=== PATIENT | male | born 1965 | race Caucasian/White ===

== ENCOUNTER 2017-06-03 11:41 | Inpatient (IN) | payer SELFPAY ==
[~2017-06-03] VITALS: Ht 188 cm; Wt 108.8 kg
[2017-06-03] MEDS ORDERED: MORPHINE SULFATE INJECTION 1 ML ONE (11:44)
[2017-06-03] MEDS ORDERED: HEPARIN SODIUM (PORCINE) 5000 UNITS/ML 1ML VIAL ONE (11:47)
[2017-06-03] MEDS ORDERED: LIDOCAINE 2%HCL (LOCAL ANESTH.) INJ 20ML MDV ONE (11:54)
[2017-06-03] MEDS ORDERED: IOHEXOL 350 MG/ML 100ML IJ ONE (11:54)
[2017-06-03] MEDS ORDERED: MORPHINE SULF INJ 2 MG/ML SYRINGE 1ML IV ONE ×2 (12:00→12:15)
[2017-06-03 12:08] LABS: Basophils # (auto) 0.1 uL; Basophils % (auto) 0.8 % (0.0-2.0); Eosinophils # (auto) 0.2 uL; Eosinophils % (auto) 2.5 % (0.0-7.0); Hematocrit 49.5 % (41.0-53.0); Hemoglobin 16.9 g/dL (13.5-17.5); Lymphocytes # (auto) 3.1 uL; Lymphocytes % (auto) 35.9 % (10.0-50.0); Mean Corpuscular Hemoglobin 30.8 pg (28.0-32.0); Mean Corpuscular Hgb Conc. 34.2 g/dL (32.0-36.0); Mean Corpuscular Volume 90.2 fL (80.0-100.0); Monocytes # (auto) 0.9 uL; Monocytes % (auto) 10.4 % (0.0-12.0); Neutrophils # (auto) 4.4 uL; Neutrophils % (auto) 50.4 % (37.0-80.0); Nucleated Red Blood Cells % 0.2 %; Platelet Count (auto) 218 10^3/uL (140-450); Red Cell Distribution Width 12.8 % (11.8-14.3); White Blood Cell 8.7 10^3/uL (4.4-10.8)
[2017-06-03] MEDS ORDERED: NITROGLYCERIN 0.4 MG SL TAB SL ONE (12:15)
[2017-06-03] MEDS ORDERED: HEPARIN SODIUM (PORCINE) 5000 UNITS/ML 1ML VIAL IV ONE (12:15)
[2017-06-03 12:32] LABS: Albumin 3.7 g/dL (3.4-5.0); BUN/Creatinine Ratio 24.5; Bilirubin, Total 0.5 mg/dL (0.2-1.0); Calcium 9.1 mg/dL (8.5-10.1); Magnesium 2.3 mg/dL (1.6-2.6); Potassium 4.4 mmol/L (3.5-5.1); Total Protein 7.7 g/dL (6.4-8.2)
[2017-06-03] MEDS ORDERED: HYDROcodone-ACET 5/325MG TAB PO PRN ×3 (13:30→14:15)
[2017-06-03] MEDS ORDERED: ACETAMINOPHEN 500 MG TAB PO PRN ×3 (13:30→14:15)
[2017-06-03] MEDS ORDERED: TICAGRELOR 90 MG TAB PO ONE ×2 (13:30→14:30)
[2017-06-03] MEDS ORDERED: MORPHINE SULF INJ 2 MG/ML SYRINGE 1ML IV PRN ×3 (13:30→14:15)
[2017-06-03] MEDS ORDERED: NITROGLYCERIN 0.4 MG SL TAB SL PRN ×3 (13:30→14:15)
[2017-06-03] MEDS ORDERED: SODIUM CHLORIDE 0.9% 1,000 ML IV SCH (13:30)
[2017-06-03] MEDS: SODIUM CHLORIDE 0.9% 1,000 ML IV SCH ×2 (14:30→21:53)
[2017-06-03] MEDS ORDERED: ASPirin-EC 81 mg tab PO ONE (14:30)
[2017-06-03 15:45] LABS: INR 1.08 (0.9-1.15); Partial Thromboplastin Time 34.1 sec (22.64-33.71); Prothrombin Time 11.8 sec (9.37-12.3)
[2017-06-03] MEDS ORDERED: ASPI-231 PO (16:30)
[2017-06-03 18:00] VITALS: BP 130/70
[2017-06-03 21:51] VITALS: BP 129/86
[2017-06-03] MEDS: TICAGRELOR 90 MG TAB PO SCH (21:53)
[2017-06-03] MEDS ORDERED: TICAGRELOR 90 MG TAB PO SCH (22:00)
[2017-06-04 04:57] VITALS: BP 127/76
[2017-06-04 09:10] VITALS: BP 125/76
[2017-06-04] MEDS ORDERED: ASPirin-EC 81 mg tab PO SCH ×2 (10:00)
[2017-06-04] MEDS: TICAGRELOR 90 MG TAB PO SCH (10:00)
[2017-06-04] MEDS: SODIUM CHLORIDE 0.9% 1,000 ML IV SCH (10:30)
[2017-06-04 12:46] VITALS: BP 120/76
[2017-06-04] MEDS ORDERED: SODIUM CHLORIDE 0.9% 1,000 ML IV SCH (13:30)
[2017-06-04 17:00] VITALS: BP 126/86
== END 2017-06-04 17:31 | disposition left against medical advice (07) | DRG 247 ==
LOC: ER 11:41 → CATH 11:42 → WEST WING 11:43 → TELE-WESTW 23:33
PROVIDERS: ADMIT Specialist; ATTEND Specialist
PROC: 027034Z Dilation of Coronary Artery, One Artery with Drug-eluting Intraluminal Device, Percutaneous Approach (ICD-10-PCS; principal; 2017-06-03)
PROC: 02C03ZZ Extirpation of Matter from Coronary Artery, One Artery, Percutaneous Approach (ICD-10-PCS; 2017-06-03)
PROC: 4A023N7 Measurement of Cardiac Sampling and Pressure, Left Heart, Percutaneous Approach (ICD-10-PCS; 2017-06-03)
PROC: B2111ZZ Fluoroscopy of Multiple Coronary Arteries using Low Osmolar Contrast (ICD-10-PCS; 2017-06-03)
PROC: B2151ZZ Fluoroscopy of Left Heart using Low Osmolar Contrast (ICD-10-PCS; 2017-06-03)
DX: I21.11 ST elevation (STEMI) myocardial infarction involving right coronary artery (principal); I25.119 Atherosclerotic heart disease of native coronary artery with unspecified angina pectoris; Z95.5 Presence of coronary angioplasty implant and graft
CPT/HCPCS: 36415; 70450; 71010; 80053; 83735; 84484; 85025; 85610; 85730; 93005; 96374; 99152; 99153; 99291; C1874